=== PATIENT | female | born 1975 | race Caucasian/White ===

== ENCOUNTER 2019-11-22 16:45 | Emergency (ER) | payer MEDICAID ==
[~2019-11-22] VITALS: Ht 154.9 cm; Wt 75.9 kg
[~2019-11-22 16:45] MED LIST: NOCURR
[2019-11-22] MEDS ORDERED: CARBAMIDE PEROXIDE 6.5% 15 ML OTIC SOLUTION AD ONE (19:15)
[2019-11-22 20:00] VITALS: BP 145/72
[2019-11-22] MEDS ORDERED: NEOMYCIN/POLYMYXIN B/HYDROCORT 10 ML OTIC SUSPENSION AD ONE (20:00)
== END 2019-11-22 20:11 | disposition home or self-care (01) ==
LOC: EMS 16:52
DX: H61.21 Impacted cerumen, right ear (principal); H60.91 Unspecified otitis externa, right ear; R03.0 Elevated blood-pressure reading, without diagnosis of hypertension; E11.9 Type 2 diabetes mellitus without complications; Z98.890 Other specified postprocedural states
CPT/HCPCS: 69209

== ENCOUNTER 2021-04-07 19:06 | Emergency (ER) | payer MEDICAID ==
[~2021-04-07] VITALS: Ht 154.9 cm; Wt 72.7 kg
[2021-04-07] MEDS ORDERED: KETOROLAC TROMETHAMINE 30 MG/ML VIAL IM ONE (20:45)
[2021-04-07] MEDS ORDERED: PredniSONE 20 MG TABLET PO ONE (20:45)
[2021-04-07 21:17] VITALS: BP 127/79
== END 2021-04-07 21:18 | disposition home or self-care (01) ==
LOC: EMS 19:06
DX: M65.222 Calcific tendinitis, left upper arm (principal); E11.9 Type 2 diabetes mellitus without complications; Z90.710 Acquired absence of both cervix and uterus
CPT/HCPCS: 73030; 82962; 96372; 99283; J1885; J7512